=== PATIENT | female | born 1960 | race Caucasian/White ===

== ENCOUNTER → 2016-05-14 | Outpatient (REF) | payer OTHER | LOC: M LAB REF 16:37 | PROVIDERS: ATTEND Neurological Surgery | DX: Z01.818 Encounter for other preprocedural examination (principal) ==

== ENCOUNTER → 2016-05-16 | Outpatient (CLI) | payer BC ==
[2016-05-16 08:54] LABS: BASO % 0.7 % (0.0-1.0); EOS # 0.1 K/mm3 (0.0-0.50); EOS % 2.4 % (0.0-3.0); LARGE UNSTAINED CELL # 0.1 K/mm3 (0.0-0.4); LARGE UNSTAINED CELL % 1.5 % (0.0-4.0); LYMPH # 0.8 K/mm3 (1.5-4.5); LYMPH % 21.1 % (24.0-44.0); MEAN CORPUSCULAR HGB CONC 33.2 g/dl (32.0-36.5); MEAN CORPUSCULAR VOLUME 90.4 fl (80.0-96.0); MICROSCOPIC INDICATED? MAN YES (NO); MONO # 0.3 K/mm3 (0.0-0.8); MONO % 7.3 % (0.0-5.0); NEUTROPHILS # 2.6 K/mm3 (1.8-7.7); PLATELET COUNT, AUTOMATED 239 k/mm3 (150-450); RED CELL DISTRIBUTION WIDTH 12.7 % (11.5-14.5); WHITE BLOOD COUNT 3.8 K/mm3 (4.0-10.0)
[2016-05-16 08:56] LABS: INR 1.01
[2016-05-16 09:18] LABS: ALBUMIN 3.7 GM/DL (3.2-5.2); ALBUMIN/GLOBULIN RATIO 1.32 (1.00-1.93); ALKALINE PHOSPHATASE 64 U/L (45-117); ALT/SGPT 24 U/L (12-78); ANION GAP 11 MEQ/L (8-16); AST/SGOT 14 U/L (15-37); BILIRUBIN,TOTAL 0.3 MG/DL (0.2-1.0); BLOOD UREA NITROGEN 15 MG/DL (7-18); CALCIUM LEVEL 8.8 MG/DL (8.5-10.1); CARBON DIOXIDE LEVEL 27 MEQ/L (21-32); CHLORIDE LEVEL 107 MEQ/L (98-107); CREATININE FOR GFR 0.87 MG/DL (0.55-1.02); GLOMERULAR FILTRATION RATE > 60.0 (>51); GLUCOSE, FASTING 97 MG/DL (70-105); POTASSIUM SERUM 4.1 MEQ/L (3.5-5.1); SODIUM LEVEL 145 MEQ/L (136-145); TOTAL PROTEIN 6.5 GM/DL (6.4-8.2)
--- NOTE | 2016-05-16 09:19 | REP ---
Chest x-ray: Two views. History: Preoperative testing. . Comparison study: March 14, 2005 . Findings: The lungs are well inflated and free of infiltrate. The pleural angles are sharp. The heart size is normal. Pulmonary vasculature is not increased. No significant bony abnormality is seen. Impression: Negative chest x-ray. Signed by Richard Hahn MD 05/16/2016 09:11 A
[2016-05-16 09:21] LABS: BACTERIA, URINE MOD AMOUNT; HYALINE CAST, URINE NONE SEEN /lpf (0-1); RBC, URINE 0-1 /hpf (0-3); SQUAMOUS EPITHELIAL CELL URINE MOD AMOUNT /hpf (SMALL AMT); TRANSITIONAL EPI CELLS, URINE SMALL AMOUNT /hpf
[2016-05-16 09:23] LABS: MICROSCOPIC EXAM PERFORMED
--- NOTE | 2016-05-16 10:28 | REP ---
Lumbar spine series: Seven views including flexion/extension lateral views. History: Preoperative testing. No comparison studies. Findings: Lumbar vertebral body heights are preserved. Alignment is normal. Flexion/extension lateral views show no subluxation or instability. Limited range of flexion/ extension motion however. There is degenerative disc narrowing and discogenic spurring at each lumbar level, most pronounced at L2-3 and L3-4 and least pronounced at L5-S1. There is mild discogenic spurring in the lower thoracic levels. There is no evidence of spondylolysis or spondylolisthesis. Sacrum and SI joints are intact. Psoas margins are symmetric. Impression: Mild diffuse degenerative disc disease. Signed by Richard Hahn MD 05/16/2016 10:40 A
--- NOTE | 2016-05-16 10:31 | REP ---
CERVICAL SPINE, EIGHT VIEWS: HISTORY: Preop. The cervical is visualized from C1 to C7 in the lateral radiographs. There is no acute fracture. The C4-5 through C6-7 intervertebral discs are decreased in height consistent with disc degeneration. Osteophytes are present on C4 through C7. There is narrowing of the right C3 through C6 and left C3 through C5 neural foramina secondary to uncinate process hypertrophy. There are 2 mm of anterior subluxation of C3 on C4 with flexion. This is not seen on neutral or extension radiographs. There are 2 mm of anterior subluxation of C4 on C5 and C5 on C6. This is unchanged with flexion and extension. IMPRESSION: Degenerative change as described above. Signed by Florentino Zavala MD 05/16/2016 10:34 A
--- NOTE | 2016-05-18 00:37 | ECGEPIP ---
Stationary ECG Study [facility] Test Date: 2016-05-16 Pat Name: TAHIR CHU Department: Room: - Gender: F Dinkey Driver: YESICA : 1960 Requested By: VELIA Hughes Order Number: [id number] Reading MD: Elliot Wilkins Measurements Intervals [place] Rate: 57 P: 50 [place]: 129 QRS: 15 QRSD: 100 T: 10 QT: 435 QTc: 424 Interpretive Statements SINUS BRADYCARDIA No prior tracing in the system Electronically Signed On 05-18-2016 0:36:54 EST by Elliot Wilkins
== END ==
LOC: EEVIPCON 08:13 → M LAB 08:13
PROVIDERS: ATTEND Neurological Surgery
DX: Z01.818 Encounter for other preprocedural examination (principal)

== ENCOUNTER → 2016-05-28 | Outpatient (CLI) | payer BC ==
--- NOTE | 2016-05-29 02:34 | REP ---
Clinical: Right shoulder pain. Technique: Internal rotation, external rotation, and Y view. Findings: Early arthritic degenerative changes include spurring and subtle periarticular heterogeneity at the acromioclavicular joint as well as subtle osteophyte formation along the inferior margin of the humeral head and glenoid rim best identified on external rotation view. No periarticular calcifications. Surrounding soft tissues unremarkable. No evidence for acute fracture or dislocation. Impression: Early arthritic degenerative changes Signed by Silver Cobb MD 05/29/2016 02:27 A
--- NOTE | 2016-05-29 02:39 | REP ---
Clinical: Pain radiating to the right shoulder. Technique: AP, lateral, flexion/extension, swimmer's, open-mouth, bilateral oblique views of the cervical spine. Findings: Alignment and lordosis maintained. There is no evidence for acute fracture / compression injury or subluxation. Moderate multilevel degenerative changes include anterior spurring, endplate sclerosis and disc space narrowing. Findings are most pronounced at the C6-7 level. Open mouth view demonstrates normal C1-C2 articulation and odontoid process. Oblique views demonstrate relatively patent neural foramen. Impression: Moderate multilevel degenerative changes. Signed by Silver Cobb MD 05/29/2016 02:31 A
--- NOTE | 2016-05-29 02:46 | REP ---
Clinical: Spondylosis. Back pain. Technique: AP, lateral, bilateral oblique, flexion/extension, coned-down views of the lumbosacral spine. Comparison: 05/16/2016. Findings: Lordosis is maintained and there is no evidence for acute fracture / compression injury or subluxation. Mild to early moderate multilevel degenerative changes include anterior spurring, endplate sclerosis with minimal disc space narrowing as well as hypertrophic facet changes. Extension view suggests less than 3 mm of retrolisthesis at the L4-5 level as compared to neutral and flexion views. Impression: Mild to early moderate multilevel degenerative changes as described above including less than 3 mm of retrolisthesis at the L4-5 level on extension. Signed by Silver Cobb MD 05/29/2016 02:39 A
== END ==
LOC: M RAD 12:41
PROVIDERS: ATTEND Neurological Surgery
DX: M25.511 Pain in right shoulder (principal); M47.892 Other spondylosis, cervical region; M47.896 Other spondylosis, lumbar region

== ENCOUNTER → 2016-06-12 | Day surgery (SDC) | payer BC ==
[~2016-06-12] VITALS: Ht 152.4 cm; Wt 90.7 kg
[~2016-06-12] MED LIST: ALBUTEROL 6.7GM INHALER **FOR ANES. CART/OMNICELL ONLY As Ordered ONE; AMOX875T PO; CEFUROXIME SODIUM 1.5 GM in D5W MINI-BAG PLUS 50 ML IV ONE; CITA20TA4 PO; CLINDAMYCIN 900 MG in APPROPRIATE DILUENT 1 EA IV ONE; CLINDAMYCIN 900 MG/50 ML PREMIX BAG As Ordered ONE; D5W/0.2% SODIUM CHLORIDE 250 ML IV SCH; LIDOCAINE 1% SDV INJ 30 ML VIAL As Ordered ONE; LIDOCAINE 2% INJ 100 MG/5 ML SDV (FOR ANES.) As Ordered ONE; LR 1,000 ML IV SCH; MIDAZOLAM INJ 2 MG/2 ML VIAL (J2250) As Ordered ONE; ONDANSETRON 4MG/2ML VIAL (J2405) As Ordered ONE; ONDANSETRON 4MG/2ML VIAL (J2405) IV PRN; PERCOCET 5MG/325MG TAB As Ordered ONE; PROPOFOL 200 MG/20 ML VIAL As Ordered ONE; SUCCINYLCHOLINE 100 MG/5 ML SYRINGE (J0330) As Ordered ONE; TYLE500T78 PO; dexameTHASONE 4 MG/ML 1ML VIAL (J1100) IV ONE; fentaNYL 100 MCG/2 ML INJECTION (J3010) As Ordered ONE; fentaNYL 100 MCG/2 ML INJECTION (J3010) IV PRN; methylPREDNISolone SUSP 40 MG/ML (DEPO-medrol) VIAL (J1030) As Ordered ONE; methylPREDNISolone SUSP 40 MG/ML (DEPO-medrol) VIAL (J1030) XX ONE
[2016-06-12] MEDS: PERCOCET 5MG/325MG TAB PO PRN ×2 (09:20→09:42)
[2016-06-12 10:15] VITALS: BP 114/55
--- NOTE | 2016-06-12 12:15 | RO ---
DATE OF PROCEDURE: 06/12/2016 PREPROCEDURE DIAGNOSIS: Right carpal tunnel syndrome. POSTPROCEDURE DIAGNOSIS: Right carpal tunnel syndrome. PROCEDURE: Release of right carpal tunnel and external neurolysis of median nerve. SURGEON: Dr. Glenn Moreno. SCUBA DIVING TEACHER: ANESTHESIA: General. ESTIMATED BLOOD LOSS: Findings: Please see my office notes for detailed preoperative evaluation and discussions. Patient was seen in the preoperative area. There was no clinical change. 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 She stated that there is no way she can live with these symptoms and is willing to take any risk for any possible benefit. After all matters pertaining to surgery, anesthesia, and followup care were discussed with her again, she was taken to the operating room. Once in the operating room, general anesthesia was given by the anesthesia service. The right upper extremity was exsanguinated after adequate prep and drape. Patient, however, kept on moving and was thrashing around. The anesthesiologist treated her accordingly I was able to make the incision distal to the wrist crease along one of the palmar creases. Alveolar layer was reached and incised. Cut edges of the blood vessels were coagulated with bipolar cautery. Tendons of palmaris longus were . Thenar and hypothenar muscles were stripped off the flexor retinaculum which was then incised in its entirety. There was marked nodular hypertrophy of the flexor retinaculum which was indenting the median nerve and contributing to stenosis of the carpal tunnel. There were superficial adhesions of the median nerve and these superficial adhesions were lysed in the carpal tunnel and distal forearm. Wound was irrigated with 1 mL of 40 mg Depo-Medrol and closed in two layers. Patient tolerated the procedure well and was transferred out of the operating room in stable condition. I could not find any family members or attendants. Patient did state earlier that her son will drive her back. Patient had written and verbal instructions. FREDDIE
== END | disposition home or self-care (01) ==
LOC: M SDC 06:08
PROVIDERS: ATTEND Neurological Surgery
DX: G56.01 Carpal tunnel syndrome, right upper limb (principal); M54.2 Cervicalgia; M25.50 Pain in unspecified joint; R29.898 Other symptoms and signs involving the musculoskeletal system; G89.29 Other chronic pain; M12.9 Arthropathy, unspecified; F32.9 Major depressive disorder, single episode, unspecified; R06.83 Snoring; Z88.8 Allergy status to other drugs, medicaments and biological substances; Z79.899 Other long term (current) drug therapy; Z86.14 Personal history of Methicillin resistant Staphylococcus aureus infection; Z72.0 Tobacco use; Z98.51 Tubal ligation status; Z78.0 Asymptomatic menopausal state
CPT/HCPCS: 64721; J0330; J1030; J1100; J2250; J2405; J3010

== ENCOUNTER → 2016-07-24 | Outpatient (REF) | payer BC ==
[~2016-07-24] MED LIST changes: -ALBUTEROL 6.7GM INHALER **FOR ANES. CART/OMNICELL ONLY As Ordered ONE; -CEFUROXIME SODIUM 1.5 GM in D5W MINI-BAG PLUS 50 ML IV ONE; -CLINDAMYCIN 900 MG in APPROPRIATE DILUENT 1 EA IV ONE; -CLINDAMYCIN 900 MG/50 ML PREMIX BAG As Ordered ONE; -D5W/0.2% SODIUM CHLORIDE 250 ML IV SCH; -LIDOCAINE 1% SDV INJ 30 ML VIAL As Ordered ONE; -LIDOCAINE 2% INJ 100 MG/5 ML SDV (FOR ANES.) As Ordered ONE; -LR 1,000 ML IV SCH; -MIDAZOLAM INJ 2 MG/2 ML VIAL (J2250) As Ordered ONE; -ONDANSETRON 4MG/2ML VIAL (J2405) As Ordered ONE; -ONDANSETRON 4MG/2ML VIAL (J2405) IV PRN; -PERCOCET 5MG/325MG TAB As Ordered ONE; -PROPOFOL 200 MG/20 ML VIAL As Ordered ONE; -SUCCINYLCHOLINE 100 MG/5 ML SYRINGE (J0330) As Ordered ONE; -dexameTHASONE 4 MG/ML 1ML VIAL (J1100) IV ONE; -fentaNYL 100 MCG/2 ML INJECTION (J3010) As Ordered ONE; -fentaNYL 100 MCG/2 ML INJECTION (J3010) IV PRN; -methylPREDNISolone SUSP 40 MG/ML (DEPO-medrol) VIAL (J1030) As Ordered ONE; -methylPREDNISolone SUSP 40 MG/ML (DEPO-medrol) VIAL (J1030) XX ONE
== END ==
LOC: M LAB REF 16:56
PROVIDERS: ATTEND Neurological Surgery
DX: Z01.818 Encounter for other preprocedural examination (principal); G56.00 Carpal tunnel syndrome, unspecified upper limb

== ENCOUNTER → 2016-08-05 | Outpatient (CLI) | payer BC ==
[2016-08-05 15:59] LABS: BASO % 0.7 % (0.0-1.0); EOS # 0.1 K/mm3 (0.0-0.50); EOS % 2.6 % (0.0-3.0); LARGE UNSTAINED CELL # 0.1 K/mm3 (0.0-0.4); LARGE UNSTAINED CELL % 1.4 % (0.0-4.0); LYMPH # 1.1 K/mm3 (1.5-4.5); MEAN CORPUSCULAR HEMOGLOBIN 29.8 pg (27.0-33.0); MEAN CORPUSCULAR HGB CONC 32.8 g/dl (32.0-36.5); MONO # 0.2 K/mm3 (0.0-0.8); MONO % 5.5 % (0.0-5.0); NEUTROPHILS # 2.6 K/mm3 (1.8-7.7); NEUTROPHILS % 63.7 % (36.0-66.0); PLATELET COUNT, AUTOMATED 244 k/mm3 (150-450); RED CELL DISTRIBUTION WIDTH 13.2 % (11.5-14.5); WHITE BLOOD COUNT 4.1 K/mm3 (4.0-10.0)
[2016-08-05 16:39] LABS: ALBUMIN 3.8 GM/DL (3.2-5.2); ALBUMIN/GLOBULIN RATIO 1.58 (1.00-1.93); ALKALINE PHOSPHATASE 70 U/L (45-117); ALT/SGPT 32 U/L (12-78); ANION GAP 8 MEQ/L (8-16); AST/SGOT 21 U/L (15-37); BILIRUBIN,TOTAL 0.3 MG/DL (0.2-1.0); BLOOD UREA NITROGEN 13 MG/DL (7-18); CALCIUM LEVEL 8.1 MG/DL (8.5-10.1); CARBON DIOXIDE LEVEL 29 MEQ/L (21-32); CHLORIDE LEVEL 105 MEQ/L (98-107); CREATININE FOR GFR 0.89 MG/DL (0.55-1.02); GLOMERULAR FILTRATION RATE > 60.0 (>51); GLUCOSE, FASTING 95 MG/DL (70-105); POTASSIUM SERUM 3.9 MEQ/L (3.5-5.1); SODIUM LEVEL 142 MEQ/L (136-145); TOTAL PROTEIN 6.2 GM/DL (6.4-8.2)
== END ==
LOC: M LAB 14:32
PROVIDERS: ATTEND Neurological Surgery
DX: G56.00 Carpal tunnel syndrome, unspecified upper limb (principal)

== ENCOUNTER → 2016-08-19 | Day surgery (SDC) | payer BC ==
[~2016-08-19] VITALS: Ht 152.4 cm; Wt 90.7 kg
[~2016-08-19] MED LIST changes: +ALBUTEROL SULFATE 2.5 MG/0.5 ML INH NEB SOLN As Ordered ONE; +ALBUTEROL SULFATE 2.5 MG/0.5 ML INH NEB SOLN INH ONE; +HYDROmorphone HCL 1 MG/ML SYRINGE (J1170) IV PRN; +LIDOCAINE 1% SDV INJ 30 ML VIAL As Ordered ONE; +LIDOCAINE 2% INJ 100 MG/5 ML SDV (FOR ANES.) As Ordered ONE; +LR 1,000 ML IV SCH; +MIDAZOLAM INJ 2 MG/2 ML VIAL (J2250) As Ordered ONE; +NORCO, ANEXSIA 5/325MG TABLET (HYDROcodone/ACETAMINOPHEN) PO PRN; +ONDANSETRON 4MG/2ML VIAL (J2405) As Ordered ONE; +ONDANSETRON 4MG/2ML VIAL (J2405) IV PRN; +PERCOCET 5MG/325MG TAB PO PRN; +PROPOFOL 200 MG/20 ML VIAL As Ordered ONE; +PROPOFOL 500 MG/50 ML VIAL As Ordered ONE; +WELLTAB38 PO; +dexameTHASONE 4 MG/ML 1ML VIAL (J1100) IV ONE; +fentaNYL 100 MCG/2 ML INJECTION (J3010) As Ordered ONE; +methylPREDNISolone SUSP 40 MG/ML (DEPO-medrol) VIAL (J1030) As Ordered ONE
[2016-08-19] MEDS: fentaNYL 100 MCG/2 ML INJECTION (J3010) IV PRN ×3 (11:38→11:53)
[2016-08-19 13:00] VITALS: BP 130/60
--- NOTE | 2016-08-19 20:02 | RO ---
DATE OF PROCEDURE: 08/19/2016 PREOPERATIVE DIAGNOSES: Left carpel tunnel syndrome. POSTOPERATIVE DIAGNOSES: Left carpel tunnel syndrome. PROCEDURE: Release of left carpal tunnel with external neurolysis of the median nerve and the carpal tunnel and distal wrist. SURGEON: Glenn Moreno MD BAND CUTTING MACHINE OPERATOR: ANESTHESIA: General with tourniquet. FINDINGS: Please see my office notes for detailed preoperative evaluation and discussion. The patient was aware of all options, risks, scope, expected outcome, sequela and outcome of the proposed salvage procedure. She understood no guarantees of any kind could be given and understood that the risk of surgery included, but not limited to , persistence or worsening of symptoms and/or deficits, failure of surgery, need for multiple surgeries, reflex sympathetic dystrophy (RSD), infection, bleeding and/or any catastrophic sequela. She stated again that she is willing to take any or all risk for any possible benefit and she can no longer cope with the symptoms. After informed consent and after matters pertaining to the surgery, anesthesia and followup care were discussed with a few times today, she was taken to the operating room. DESCRIPTION OF PROCEDURE: Once in the operating room, general anesthesia was given by the anesthesia service. The area of surgery was prepped and draped in the usual sterile fashion. The tourniquet was applied. The left upper extremity was exsanguinated and a tourniquet was placed to 80 mmHg. A skin incision was given distal to the wrist crease, along one of the palmar creases. Alveolar layer was reached and incised. Cut edges of blood vessels were coagulated with bipolar cautery. Tendons of palmaris longus were . Thenar and hypothenar muscles were from the flexor retinaculum, which was hypertrophic in nodular fashion and it was incised in its entirety. There was considerable perineural scarring which was lysed and complete decompression of the median nerve appeared to have achieved the carpel tunnel and the distal forearm. At this time the wound was closed in two layers. The patient tolerated the procedure well and was transferred to the recovery room in stable condition.
== END | disposition home or self-care (01) ==
LOC: M SDC 07:31
PROVIDERS: ATTEND Neurological Surgery
DX: G56.02 Carpal tunnel syndrome, left upper limb (principal); M54.2 Cervicalgia; M47.892 Other spondylosis, cervical region; M47.896 Other spondylosis, lumbar region; E66.9 Obesity, unspecified; F41.9 Anxiety disorder, unspecified; F32.9 Major depressive disorder, single episode, unspecified; M20.40 Other hammer toe(s) (acquired), unspecified foot; D64.9 Anemia, unspecified; R29.898 Other symptoms and signs involving the musculoskeletal system; M12.9 Arthropathy, unspecified; J30.9 Allergic rhinitis, unspecified; E78.5 Hyperlipidemia, unspecified; R32 Unspecified urinary incontinence; G43.909 Migraine, unspecified, not intractable, without status migrainosus; Z79.899 Other long term (current) drug therapy; Z78.0 Asymptomatic menopausal state; Z98.51 Tubal ligation status; Z87.891 Personal history of nicotine dependence
CPT/HCPCS: 64721; 96374; 96375; J0690; J1030; J1100; J2250; J2405; J3010

== ENCOUNTER → 2016-08-23 | Outpatient (REF) | payer BC ==
[~2016-08-23] MED LIST changes: -ALBUTEROL SULFATE 2.5 MG/0.5 ML INH NEB SOLN As Ordered ONE; -ALBUTEROL SULFATE 2.5 MG/0.5 ML INH NEB SOLN INH ONE; -HYDROmorphone HCL 1 MG/ML SYRINGE (J1170) IV PRN; -LIDOCAINE 1% SDV INJ 30 ML VIAL As Ordered ONE; -LIDOCAINE 2% INJ 100 MG/5 ML SDV (FOR ANES.) As Ordered ONE; -LR 1,000 ML IV SCH; -MIDAZOLAM INJ 2 MG/2 ML VIAL (J2250) As Ordered ONE; -NORCO, ANEXSIA 5/325MG TABLET (HYDROcodone/ACETAMINOPHEN) PO PRN; -ONDANSETRON 4MG/2ML VIAL (J2405) As Ordered ONE; -ONDANSETRON 4MG/2ML VIAL (J2405) IV PRN; -PERCOCET 5MG/325MG TAB PO PRN; -PROPOFOL 200 MG/20 ML VIAL As Ordered ONE; -PROPOFOL 500 MG/50 ML VIAL As Ordered ONE; -dexameTHASONE 4 MG/ML 1ML VIAL (J1100) IV ONE; -fentaNYL 100 MCG/2 ML INJECTION (J3010) As Ordered ONE; -methylPREDNISolone SUSP 40 MG/ML (DEPO-medrol) VIAL (J1030) As Ordered ONE
== END ==
LOC: M SFHCLERA 11:46
PROVIDERS: ATTEND Nurse Practitioner Family
DX: R19.7 Diarrhea, unspecified (principal)

== ENCOUNTER → 2017-06-25 | Outpatient (REF) | payer BC | LOC: M SFHCWAGY 16:07 | DX: Z12.4 Encounter for screening for malignant neoplasm of cervix (principal) | CPT/HCPCS: G0123 ==

== ENCOUNTER → 2017-06-29 | Outpatient (CLI) | payer BC | LOC: M WHC 09:47 | DX: Z12.31 Encounter for screening mammogram for malignant neoplasm of breast (principal); Z78.0 Asymptomatic menopausal state; Z92.23 Personal history of estrogen therapy | CPT/HCPCS: 77067 ==

== ENCOUNTER 2017-08-20 12:16 | Observation (INO) | payer BC ==
[2017-08-20] MEDS ORDERED: ALBUTEROL SULFATE 2.5 MG/0.5 ML INH NEB SOLN As Ordered (14:21)
[2017-08-20] MEDS ORDERED: ONDANSETRON 4MG/2ML VIAL (J2405) IV ×2 (14:30)
[2017-08-20] MEDS ORDERED: IPRATROPIUM 0.5MG/ALBUTEROL 2.5MG INH SOL UD 3ML (DUONEB)(J7620) NEB (14:30)
[2017-08-20] MEDS: ALBUTEROL SULFATE 2.5 MG/0.5 ML INH NEB SOLN INH (14:45)
[2017-08-20] MEDS: NS 1,000 ML IV (14:45)
[2017-08-20] MEDS ORDERED: PROPOFOL 200 MG/20 ML VIAL As Ordered (14:50)
[2017-08-20] MEDS ORDERED: LIDOCAINE 2% INJ 100 MG/5 ML SDV (FOR ANES.) As Ordered (14:51)
[2017-08-20 15:01] LABS: BASO % 0.6 % (0.0-1.0); EOS # 0.2 10^3/uL (0.0-0.50); EOS % 3.3 % (0.0-3.0); HEMATOCRIT 39.6 % (36.0-47.0); HEMOGLOBIN 12.9 g/dl (12.0-15.5); IMMATURE GRANULOCYTE % 0.2 % (0-3.0); LYMPH # 1.5 10^3/uL (1.5-4.5); LYMPH % 30.1 % (24.0-44.0); MEAN CORPUSCULAR HEMOGLOBIN 29.6 pg (27.0-33.0); MEAN CORPUSCULAR HGB CONC 32.6 g/dl (32.0-36.5); MEAN CORPUSCULAR VOLUME 90.8 fl (80.0-96.0); MONO # 0.3 10^3/uL (0.0-0.8); MONO % 6.4 % (0.0-5.0); NEUTROPHILS # 2.9 10^3/uL (1.8-7.7); NEUTROPHILS % 59.4 % (36.0-66.0); PLATELET COUNT, AUTOMATED 222 10^3/uL (150-450); RED BLOOD COUNT 4.36 10^6/uL (4.00-5.40); RED CELL DISTRIBUTION WIDTH 13.9 % (11.5-14.5); WHITE BLOOD COUNT 4.8 10^3/uL (4.0-10.0)
[2017-08-20 15:26] LABS: ALBUMIN 3.8 GM/DL (3.2-5.2); ALBUMIN/GLOBULIN RATIO 1.31 (1.00-1.93); ALKALINE PHOSPHATASE 68 U/L (45-117); ALT/SGPT 21 U/L (12-78); ANION GAP 8 MEQ/L (8-16); AST/SGOT 15 U/L (7-37); BILIRUBIN,TOTAL 0.4 MG/DL (0.2-1.0); BLOOD UREA NITROGEN 8 MG/DL (7-18); C REACTIVE PROTEIN QUANTITATIV 0.87 MG/DL (0.00-0.30); CALCIUM LEVEL 8.2 MG/DL (8.5-10.1); CARBON DIOXIDE LEVEL 27 MEQ/L (21-32); CHLORIDE LEVEL 109 MEQ/L (98-107); CREATININE FOR GFR 0.82 MG/DL (0.55-1.30); GLOMERULAR FILTRATION RATE > 60.0 (>51); GLUCOSE, FASTING 84 MG/DL (70-100); MAGNESIUM LEVEL 2.3 MG/DL (1.8-2.4); POTASSIUM SERUM 4.1 MEQ/L (3.5-5.1); SODIUM LEVEL 144 MEQ/L (136-145); TOTAL PROTEIN 6.7 GM/DL (6.4-8.2)
[2017-08-20] MEDS: CitaloPRAM (CeleXA) 20 MG TAB PO ×2 (16:31→21:03)
[2017-08-20] MEDS: PANTOPRAZOLE 40MG TAB (PROTONIX) PO (16:31)
[2017-08-20] MEDS: buPROPion **XL** TABLET 150MG (WELLBUTRIN XL) PO (16:32)
[2017-08-20] MEDS: guaiFENesin ER 600 MG TAB PO (21:03)
[2017-08-21] MEDS: IPRATROPIUM 0.5MG/ALBUTEROL 2.5MG INH SOL UD 3ML (DUONEB)(J7620) NEB ×3 (01:36→07:37)
[2017-08-21 05:52] LABS: HEMATOCRIT 36.6 % (36.0-47.0); HEMOGLOBIN 12.1 g/dl (12.0-15.5); MEAN CORPUSCULAR HEMOGLOBIN 29.9 pg (27.0-33.0); MEAN CORPUSCULAR HGB CONC 33.1 g/dl (32.0-36.5); MEAN CORPUSCULAR VOLUME 90.4 fl (80.0-96.0); PLATELET COUNT, AUTOMATED 192 10^3/uL (150-450); RED BLOOD COUNT 4.05 10^6/uL (4.00-5.40); RED CELL DISTRIBUTION WIDTH 13.9 % (11.5-14.5); WHITE BLOOD COUNT 6.7 10^3/uL (4.0-10.0)
[2017-08-21 06:10] LABS: ANION GAP 5 MEQ/L (8-16); BLOOD UREA NITROGEN 8 MG/DL (7-18); CARBON DIOXIDE LEVEL 28 MEQ/L (21-32); CHLORIDE LEVEL 109 MEQ/L (98-107); CREATININE FOR GFR 0.89 MG/DL (0.55-1.30); GLOMERULAR FILTRATION RATE > 60.0 (>51); GLUCOSE, FASTING 97 MG/DL (70-100); SODIUM LEVEL 142 MEQ/L (136-145)
[2017-08-21] MEDS: buPROPion **XL** TABLET 150MG (WELLBUTRIN XL) PO (08:18)
[2017-08-21] MEDS: guaiFENesin ER 600 MG TAB PO (08:18)
[2017-08-21] MEDS: PANTOPRAZOLE 40MG TAB (PROTONIX) PO (08:18)
[2017-08-21] MEDS ORDERED: CitaloPRAM (CeleXA) 20 MG TAB PO (21:00)
== END 2017-08-21 11:58 | disposition home or self-care (01) ==
LOC: M OPP 12:16 → M MSPAV 14:29
DX: R09.02 Hypoxemia (principal); J98.01 Acute bronchospasm; Z12.11 Encounter for screening for malignant neoplasm of colon; E66.9 Obesity, unspecified; E87.4 Mixed disorder of acid-base balance; G47.30 Sleep apnea, unspecified; F17.210 Nicotine dependence, cigarettes, uncomplicated; D64.9 Anemia, unspecified; F41.9 Anxiety disorder, unspecified; F32.9 Major depressive disorder, single episode, unspecified; Z79.899 Other long term (current) drug therapy
CPT/HCPCS: 45378

== ENCOUNTER → 2018-04-29 | Outpatient (CLI) | payer BC ==
[~2018-04-29] MED LIST changes: +ALEV220C2 PO
--- NOTE | 2018-04-29 19:48 | REP ---
LEFT KNEE SERIES: Five views of the left knee are performed and demonstrate no fracture or dislocation. There is mild medial joint space narrowing with subchondral sclerosis and spurring. There is mild patellofemoral compartment narrowing with subchondral sclerosis. There does not appear to be a significant joint effusion. IMPRESSION: Mild degenerative changes. No fracture or dislocation. Electronically Signed by Zen Ballard MD 04/29/2018 08:29 P
== END ==
LOC: M LRY 19:02
PROVIDERS: ATTEND Nurse Practitioner Family
DX: M17.12 Unilateral primary osteoarthritis, left knee (principal); M25.762 Osteophyte, left knee; S89.92XA Unspecified injury of left lower leg, initial encounter; Y93.H1 Activity, digging, shoveling and raking; Y92.9 Unspecified place or not applicable

== ENCOUNTER → 2019-01-27 | Outpatient (CLI) | payer BC ==
[~2019-01-27] MED LIST changes: -CITA20TA4 PO; +CITA20TA6 PO
--- NOTE | 2019-01-27 14:03 | REP ---
Right knee five views: There is mild joint space narrowing of the medial compartment and osteophytic growth along medial joint line. There is osteophytic growth along the patellofemoral joint line without joint space narrowing. The lateral compartment is unremarkable. Mineralization is normal. There are no calcifications. There is no effusion. Impression: Patellofemoral and medial compartment osteoarthritis. This is slightly more advanced in the medial compartment Electronically Signed by Zen Vaughan MD 01/27/2019 01:55 P
== END ==
LOC: M RAD 11:33
PROVIDERS: ATTEND Physician Assistant
DX: M17.11 Unilateral primary osteoarthritis, right knee (principal); M25.561 Pain in right knee

== ENCOUNTER → 2021-01-21 | Outpatient (CLI) | payer BC ==
--- NOTE | 2021-01-21 13:37 | REP ---
INDICATION: RADICULOPATHY, CERVICOTHORACIC REGION. COMPARISON: Comparison cervical spine radiographs are from May 28, 2016. TECHNIQUE: AP and lateral views. FINDINGS: There is straightening of the normal cervical lordosis. Cervical vertebral body heights are preserved. Alignment is normal. There is degenerative disc narrowing at C4-5 C5-6 and C6-7. This is most pronounced at C6-7. There is osteoarthritic facet hypertrophy in the midcervical spine bilaterally. I suspect fusion of the cervical spine facets, perhaps unilaterally at C2-3 and C4-5. IMPRESSION: Degenerative spondylosis changes. Possible small cervical facet joint fusion C2-3 and C4-5. Straightening. <Electronically signed by Theo Hahn > 01/21/21 [id number]
--- NOTE | 2021-01-21 13:38 | REP ---
INDICATION: RADICULOPATHY, CERVICOTHORACIC REGION. COMPARISON: Comparison is made with chest radiograph views from May 16, 2016. TECHNIQUE: AP lateral and swimmer's lateral views. FINDINGS: Thoracic vertebral body heights are preserved. Alignment is normal. Pedicles and posterior elements are intact. No paravertebral soft tissue mass is seen. No fracture or collapse is seen. There is degenerative disc spurring anteriorly and minimal disc space narrowing in the mid and lower thoracic spine levels. IMPRESSION: Degenerative spondylosis changes. <Electronically signed by Theo Hahn > 01/21/21 1708
--- NOTE | 2021-01-21 13:40 | REP ---
INDICATION: RADICULOPATHY, CERVICOTHORACIC REGION. COMPARISON: Comparison lumbar spine radiographs are from May 28, 2016. TECHNIQUE: AP and lateral views of the lumbar spine are provided. FINDINGS: The lumbar vertebral body heights are preserved. Alignment is normal. There is degenerative disc narrowing and spur formation at L3-4, L2-3, and L1-2. Sclerosis of the endplates at L1-2 is noted. This is more pronounced than on the 2017 prior study. There is no evidence of spondylolysis or spondylolisthesis. There is mild facet hypertrophy at L4-5 and L5-S1 bilaterally. Psoas margins are symmetric. Sacrum and SI joints are intact IMPRESSION: Degenerative disc and osteoarthritic facet changes as noted above. Degenerative disc disease most pronounced at L1-2. <Electronically signed by Theo Hahn > 01/21/21 [id number]
== END ==
LOC: M RAD 13:05
PROVIDERS: ATTEND Chiropractor
DX: M51.36 Other intervertebral disc degeneration, lumbar region (principal); M50.321 Other cervical disc degeneration at C4-C5 level; M50.322 Other cervical disc degeneration at C5-C6 level; M50.323 Other cervical disc degeneration at C6-C7 level; M54.13 Radiculopathy, cervicothoracic region; M99.01 Segmental and somatic dysfunction of cervical region; M54.41 Lumbago with sciatica, right side; M99.03 Segmental and somatic dysfunction of lumbar region; M99.02 Segmental and somatic dysfunction of thoracic region; M62.49 Contracture of muscle, multiple sites

== ENCOUNTER → 2021-03-22 | Outpatient (CLI) | payer BC ==
--- NOTE | 2021-03-24 16:55 | REPVR ---
PROCEDURE INFORMATION: Exam: MR Cervical Spine Without Contrast Exam date and time: 03/22/2021 4:22 PM Age: 61 years old Clinical indication: Neck pain; Additional info: Cervical disc degeneration TECHNIQUE: Imaging protocol: Multiplanar magnetic resonance images of the cervical spine without contrast. COMPARISON: CR Spine,Cervical 2 or 3 views 01/21/2021 1:20 PM FINDINGS: Cervical vertebral body heights are intact. Straightening of the cervical lordosis. The dens is intact. No abnormal marrow signal. No cord compression, expansion, or abnormal cord signal. Visualized structures of the posterior fossa are unremarkable. Soft tissues are unremarkable. C2-C3: Small central disc protrusion without significant canal or foraminal narrowing. C3-C4: Uncovertebral spurring causes mild bilateral foraminal narrowing. No significant canal narrowing. C4-C5: No significant canal or foraminal narrowing. C5-C6: Uncovertebral spurring and facet hypertrophy cause moderate left and mild right foraminal narrowing. No significant canal narrowing. C6-C7: Posterior disc protrusion and uncovertebral spurring cause mild canal narrowing and [id number] bilateral foraminal narrowing. C7-T1: No significant canal or foraminal narrowing. IMPRESSION: Multilevel spondylotic changes of the cervical spine, as detailed above. Electronically signed by: Jerome Romero On 03/24/2021 16:54:36 PM
== END ==
LOC: M PLAIMG 15:19
PROVIDERS: ATTEND Physician Assistant Surgical
DX: M50.20 Other cervical disc displacement, unspecified cervical region (principal); M50.30 Other cervical disc degeneration, unspecified cervical region

== ENCOUNTER → 2022-12-31 | Outpatient (CLI) | payer BC | LOC: M WHC 14:24 | PROVIDERS: ATTEND Nurse Practitioner Family | DX: Z12.31 Encounter for screening mammogram for malignant neoplasm of breast (principal) ==

== ENCOUNTER → 2022-12-31 | Outpatient (REF) | payer BC, OTHER | LOC: M SFHCWAGY 17:42 | PROVIDERS: ATTEND Nurse Practitioner Family | DX: Z12.4 Encounter for screening for malignant neoplasm of cervix (principal) ==

== ENCOUNTER → 2023-01-08 | Outpatient (CLI) | payer BC, OTHER | LOC: M WUC 14:42 | PROVIDERS: ATTEND Physician Assistant | DX: M25.531 Pain in right wrist (principal) ==